=== PATIENT | female | born 1980 | race Caucasian/White ===

== ENCOUNTER 2018-08-10 12:11 | Emergency (ER) | payer MEDICAID, OTHER ==
[~2018-08-10] VITALS: Ht 175.3 cm; Wt 72.4 kg
[2018-08-10 12:29] VITALS: BP 120/84
== END 2018-08-10 14:42 | disposition home or self-care (01) ==
LOC: ER 12:12
DX: M72.2 Plantar fascial fibromatosis (principal); Z88.0 Allergy status to penicillin; Z88.1 Allergy status to other antibiotic agents; Z91.040 Latex allergy status; W22.8XXA Striking against or struck by other objects, initial encounter; Y93.01 Activity, walking, marching and hiking; Y92.89 Other specified places as the place of occurrence of the external cause; Y99.8 Other external cause status
CPT/HCPCS: 73630; 99284

== ENCOUNTER 2018-09-11 17:00 | Emergency (ER) | payer MEDICAID ==
[~2018-09-11] VITALS: Ht 172.7 cm; Wt 71.0 kg
[2018-09-11 17:12] VITALS: BP 111/80
[2018-09-11] MEDS ORDERED: TRAM50TA2 PO (18:07)
== END 2018-09-11 19:07 | disposition home or self-care (01) ==
LOC: ER 17:01
DX: M25.521 Pain in right elbow (principal); Z88.0 Allergy status to penicillin; Z88.1 Allergy status to other antibiotic agents; Z91.040 Latex allergy status; Z79.899 Other long term (current) drug therapy
CPT/HCPCS: 29105; 73080; 99283

== ENCOUNTER 2018-12-14 08:07 | Emergency (ER) | payer MEDICAID ==
[~2018-12-14] VITALS: Ht 170.2 cm; Wt 72.2 kg
[2018-12-14 08:22] VITALS: BP 114/79
== END 2018-12-14 10:55 | disposition home or self-care (01) ==
LOC: ER 08:08
DX: S89.91XA Unspecified injury of right lower leg, initial encounter (principal); G89.29 Other chronic pain; F17.200 Nicotine dependence, unspecified, uncomplicated; Z88.0 Allergy status to penicillin; Z88.1 Allergy status to other antibiotic agents; Z91.040 Latex allergy status; W01.0XXA Fall on same level from slipping, tripping and stumbling without subsequent striking against object, initial encounter; Y93.89 Activity, other specified; Y92.89 Other specified places as the place of occurrence of the external cause; Y99.8 Other external cause status
CPT/HCPCS: 29505; 73564; 93971; 99284

== ENCOUNTER 2019-03-25 22:45 | Emergency (ER) | payer MEDICAID ==
[~2019-03-25] VITALS: Ht 175.3 cm; Wt 63.0 kg
--- NOTE | 2019-03-25 23:29 | NUR ---
PT C/O NASAL CONGESTION FOR ABOUT A WEEK, BLOODY NOSE THIS AM, HEADACHES, CLOGGED EARS AND SINUS PRESSURE
[2019-03-25] MEDS ORDERED: DOXY100C43 PO (23:59)
[2019-03-26 00:08] VITALS: BP 119/80
== END 2019-03-26 00:06 | disposition home or self-care (01) ==
LOC: ER 22:46
DX: J32.0 Chronic maxillary sinusitis (principal); G89.29 Other chronic pain; F17.210 Nicotine dependence, cigarettes, uncomplicated; Z88.0 Allergy status to penicillin; Z88.1 Allergy status to other antibiotic agents; Z91.040 Latex allergy status; Z79.899 Other long term (current) drug therapy
CPT/HCPCS: 99284

== ENCOUNTER 2019-04-29 07:35 | Emergency (ER) | payer MEDICAID ==
[~2019-04-29] VITALS: Ht 175.3 cm; Wt 68.3 kg
[2019-04-29 07:49] VITALS: BP 104/66
[2019-04-29] MEDS ORDERED: LIDOcaine 1% w/epiNEPHrine 1:200,000 30ml vial IM ONE (08:20)
[2019-04-29] MEDS ORDERED: TETanus/Pertussis (Acell)/Diphther VAC/PF (Tdap-Adult) 0.5ml syringe IM ONE (08:20)
[2019-04-29] MEDS ORDERED: bacitracin 15gm ointment TP ONE (08:20)
[2019-04-29] MEDS ORDERED: SULF1TAB49 PO (08:55)
[2019-04-29] MEDS ORDERED: CEPH-572 PO (08:55)
== END 2019-04-29 09:33 | disposition home or self-care (01) ==
LOC: ER 07:36
DX: L02.413 Cutaneous abscess of right upper limb (principal); L03.113 Cellulitis of right upper limb; G89.29 Other chronic pain; F31.9 Bipolar disorder, unspecified; Z88.1 Allergy status to other antibiotic agents; Z88.0 Allergy status to penicillin; Z91.040 Latex allergy status; Z79.899 Other long term (current) drug therapy
CPT/HCPCS: 96372; 99283

== ENCOUNTER 2019-05-03 21:04 | Emergency (ER) | payer MEDICAID ==
[~2019-05-03 21:04] MED LIST: CEPH-572 PO; SULF1TAB49 PO
[2019-05-03 21:17] VITALS: BP 108/72
== END 2019-05-03 22:20 | disposition home or self-care (01) ==
LOC: ER 21:08
DX: L02.413 Cutaneous abscess of right upper limb (principal); G89.29 Other chronic pain; Z88.1 Allergy status to other antibiotic agents; Z88.0 Allergy status to penicillin; Z91.040 Latex allergy status
CPT/HCPCS: 99282